=== PATIENT | female | born 1955 | race Caucasian/White ===

== ENCOUNTER → 2025-04-01 | Day surgery (SDC) | payer MEDICARE, OTHER ==
[~2025-04-01] MED LIST: AMLODIPINE BESYL5 MG PO; BUSPIRONE HCL5 MG PO; CLONIDINE HCL0.3 MG PO; COLACE100 MG PO; COREG3.125 MG PO; DEXTROSE 5% 250ML 250 ML IV ONE; DICYCLOMINE HCL20 MG PO; ELIQUIS5 MG PO; ESMOLOL HCL 100MG/10ML 10 MG/ML VIAL ONE; ETOMIDATE 40 MG/ 20ML VIAL IV ONE; FAMOTIDINE 20 MG/2 ML VIAL IV ONE; FENTANYL CITRATE/PF 100MCG/2 ML INJ ONE; FLUOXETINE HCL20 M1 PO; GABAPENTIN300 MG PO; GLYCOPYRROLATE INJ 0.2 MG/ML VIAL ONE; HYDROXYZINE PAM25 MG PO; HYOSCYAMINE SULFATE 0.5 MG/ML INJ ONE; LACTATED RINGER'S 0 ML ONE; LEVAQUIN250 MG PO; LIDOCAINE HCL 2% LOCAL INJ 5 ML SDV VIAL INJ ONE; LOSARTAN POTAS100 MG PO; LYRICA50 MG PO; METAXALONE800 MG PO; METHOCARBAMOL750 MG PO; METOCLOPRAMIDE HCL 10 MG/2ML VIAL ONE; NIFEDIPINE ER30 M1 PO; ONDANSETRON HCL INJ 2MG/ML 2ML 2 MG/ML VIAL ONE; OXYBUTYNIN CHLOR5 MG PO; PROPOFOL IV EMULSION 10 MG/ML 20 ML VIAL ONE; PROTONIX20 MG PO; RENVELA0.8 GM PO; SIMVASTATIN20 MG PO; SODIUM CHLORIDE 0.9% 500ML 500 ML ONE; SUCRALFATE1 GM PO; TIZANIDINE HCL4 MG PO; TRAZODONE HCL50 MG PO; TYLENOL WITH C1 EACH PO; VITAMIN D250 MCG
[2025-04-01 11:57] LABS: BASOPHILS % 0.3 % (0.0-1.0); EOSINOPHILS % 0.6 % (0.0-6.0); LYMPHOCYTES % 23.2 % (18.0-39.1); MONOCYTES % 7.2 % (4.4-11.3); NEUTROPHILS % 68.4 % (38.7-80.0); RED CELL DISTRIBUTION WIDTH 14.9 % (11.7-14.4)
[2025-04-01 12:36] LABS: EST GLOMERULAR FILTRATION RATE 13.0 ML/MIN (>=60)
[2025-04-01 12:43] LABS: INR 1.0
[2025-04-01 14:21] VITALS: TEMP 97
[2025-04-01 14:50] VITALS: BP 160/71; PULSE 81; RESP 18; O2SAT 100
[2025-04-01 15:08] LABS: CDIFF AG QUIK CHEK NEGATIVE (NEGATIVE); CDIFF TOX QUIK CHEK NEGATIVE (NEGATIVE); WBC,FECAL (FECAL LACTOFERRIN) NEGATIVE (NEGATIVE)
== END | disposition home or self-care (01) ==
LOC: OR 10:29
PROVIDERS: ATTEND Internal Medicine Gastroenterology
DX: K22.2 Esophageal obstruction (principal); K20.90 Esophagitis, unspecified without bleeding; K29.50 Unspecified chronic gastritis without bleeding; K29.80 Duodenitis without bleeding; K44.9 Diaphragmatic hernia without obstruction or gangrene; K22.89 Other specified disease of esophagus; D12.4 Benign neoplasm of descending colon; D12.8 Benign neoplasm of rectum; K63.89 Other specified diseases of intestine; K57.30 Diverticulosis of large intestine without perforation or abscess without bleeding; K64.8 Other hemorrhoids; I12.0 Hypertensive chronic kidney disease with stage 5 chronic kidney disease or end stage renal disease; N18.6 End stage renal disease; Z99.2 Dependence on renal dialysis; F31.9 Bipolar disorder, unspecified; E78.00 Pure hypercholesterolemia, unspecified; Z90.49 Acquired absence of other specified parts of digestive tract; Z90.5 Acquired absence of kidney; Z80.0 Family history of malignant neoplasm of digestive organs; Z88.1 Allergy status to other antibiotic agents; Z88.5 Allergy status to narcotic agent; Z79.01 Long term (current) use of anticoagulants; Z79.899 Other long term (current) drug therapy; Z01.810 Encounter for preprocedural cardiovascular examination; Z01.812 Encounter for preprocedural laboratory examination
CPT/HCPCS: 36415; 43239; 43450; 45380; 45385; 80048; 83630; 83993; 85025; 85610; 85730; 87045; 87177; 87324; 87328; 87449; 93005; J1308; J1980; J2003; J2405; J2470; J2704; J2765; J3010; J7040; 45378